=== PATIENT | female | born 2000 | race Caucasian/White ===

== ENCOUNTER 2022-03-31 20:05 | Emergency (ER) | payer OTHER ==
[~2022-03-31] VITALS: Ht 162.6 cm; Wt 84.1 kg
[2022-04-01] MEDS ORDERED: PERMETHRIN 1% 60 ML LOTION TP ONE (01:00)
[2022-04-01 01:28] VITALS: BP 103/70
== END 2022-04-01 02:28 | disposition home or self-care (01) ==
LOC: EMS 20:08
DX: B85.0 Pediculosis due to Pediculus humanus capitis (principal)
CPT/HCPCS: 99283